=== PATIENT | male | born 1955 | race Caucasian/White ===

== ENCOUNTER 2016-11-08 10:39 | Inpatient (IN) | payer MEDICARE ==
[~2016-11-08] VITALS: Ht 180.3 cm; Wt 167.2 kg
[2016-11-08] MEDS ORDERED: SODIUM CHLORIDE FLUSH 10 ML SYR IV PRN (11:20)
[2016-11-08] MEDS ORDERED: SODIUM CHLORIDE FLUSH 3 ML SYR IV PRN (11:20)
[2016-11-08 11:54] LABS: BASOPHILS % (AUTO) 0 % (0-2); EOSINOPHILS # (AUTO) 0.1 10^3uL; EOSINOPHILS % (AUTO) 2 % (0-4); LYMPHOCYTES # (AUTO) 1.2 X10^3; MEAN CORPUSCULAR HEMOGLOBIN 32.3 PG (26.0-34.0); MEAN CORPUSCULAR VOLUME 95 FL (80-100); MEAN PLATELET VOLUME 9.2 FL (6.0-9.5); MONOCYTES # (AUTO) 0.4 X10^3; MONOCYTES % (AUTO) 7 % (3-11); NEUTROPHILS # (AUTO) 4.3 X10^3; NEUTROPHILS % (AUTO) 71 % (51-67); PLATELET COUNT 236 10^3uL (150-450); WHITE BLOOD COUNT 5.98 10^3uL (4.0-11.0)
[2016-11-08 12:05] LABS: ALBUMIN 4.2 g/dL (3.4-5.0); ALKALINE PHOSPHATASE 76 U/L (38-126); ANION GAP 17.5 MEQ/L (3-15); BUN/CREATININE RATIO 40 (10-20); CALCULATED IONIZED CALCIUM 4.1 mg/dL (3.8-4.6); TOTAL PROTEIN 7.4 g/dL (6.4-8.5)
[2016-11-08] MEDS ORDERED: METOCLOPRAMIDE 10 MG/2 ML (REGLAN) VIAL IV ONE (12:20)
[2016-11-08] MEDS ORDERED: meTOprolol 5 MG/5 ML (LOPRESSOR) VIAL IV ONE (12:20)
[2016-11-08 12:54] LABS: AMPHETAMINE SCREEN, URINE Negative (Negative); CANNABINOID SCREEN, URINE Negative (Negative); METHAMPHETAMINE SCREEN URINE S NEGATIVE (NEGATIVE); OPIATE SCREEN URINE Negative (Negative); PROPOXYPHENE STAT NEGATIVE (NEGATIVE)
[2016-11-08] MEDS ORDERED: oxycODONE/ACETAMINOPHEN 10MG-325 MG (PERCOCET-10) TABLET PO ONE (13:50)
[2016-11-08] MEDS ORDERED: oxyCODONE/ACETAMINOPHEN 5MG-325 MG (PERCOCET) TABLET PO ONE (14:15)
[2016-11-08] MEDS ORDERED: GLUCAGON EMERGENCY 1 MG/KIT IM PRN (17:15)
[2016-11-08] MEDS ORDERED: DEXTROSE 50% 25 GM/50 ML SYRINGE IV PRN (17:15)
[2016-11-08] MEDS ORDERED: ONDANSETRON 2 MG/ML (Z0FRAN) 2 ML VIAL IV PRN (17:15)
[2016-11-08] MEDS ORDERED: DEXTROSE ORAL GEL (GLUTOSE 40%) 15 GM TUBE PO PRN (17:15)
[2016-11-08] MEDS: INSULIN LISPRO 1 UNIT/0.01 ML (HUMALOG) DOSE SC SCH ×2 (17:30→22:10)
[2016-11-08 17:31] VITALS: BP 124/85
[2016-11-08 18:00] VITALS: BP 124/85
[2016-11-08] MEDS: NICOTINE 21 MG (NICODERM) PATCH TD SCH (18:38)
[2016-11-08] MEDS: oxycODONE/ACETAMINOPHEN 10MG-325 MG (PERCOCET-10) TABLET PO SCH (18:42)
[2016-11-08] MEDS ORDERED: CYCLOBENZAPRINE 10 MG (FLEXERIL) TAB ONE (20:07)
[2016-11-08] MEDS: lisINopril 40 MG (PRINIVIL) TABLET PO SCH (20:24)
[2016-11-08] MEDS ORDERED: GLIMEPIRIDE 4 MG (AMARYL) TAB PO SCH ×2 (21:00)
[2016-11-08] MEDS ORDERED: metFORMIN 1000 MG (GLUCOPHAGE) TABLET PO SCH ×2 (21:00)
[2016-11-08] MEDS ORDERED: IBUPROFEN 800 MG (MOTRIN) TAB PO PRN (21:00)
[2016-11-08] MEDS ORDERED: ACETAMINOPHEN 500 MG TAB (TYLENOL) PO SCH (21:00)
[2016-11-08] MEDS ORDERED: NON-FORMULARY MEDICATION 1 EA EA (Cyclobenzaprine HCl 5 MG) PO SCH (21:00)
[2016-11-08] MEDS ORDERED: CYCLOBENZAPRINE 10 MG (FLEXERIL) TAB PO SCH (21:01)
[2016-11-09 00:02] VITALS: BP 135/75
[2016-11-09] MEDS: oxycODONE/ACETAMINOPHEN 10MG-325 MG (PERCOCET-10) TABLET PO SCH ×2 (00:08→05:48)
[2016-11-09 06:10] LABS: BASOPHILS % (AUTO) 1 % (0-2); EOSINOPHILS # (AUTO) 0.1 10^3uL; EOSINOPHILS % (AUTO) 2 % (0-4); LYMPHOCYTES # (AUTO) 2.4 X10^3; MEAN CORPUSCULAR HGB CONC 33.9 g/dL (31.0-37.0); MEAN CORPUSCULAR VOLUME 94 FL (80-100); MEAN PLATELET VOLUME 9.3 FL (6.0-9.5); MONOCYTES # (AUTO) 0.6 X10^3; MONOCYTES % (AUTO) 9 % (3-11); NEUTROPHILS # (AUTO) 3.4 X10^3; NEUTROPHILS % (AUTO) 52 % (51-67); PLATELET COUNT 243 10^3uL (150-450)
[2016-11-09 06:26] LABS: ALBUMIN 3.8 g/dL (3.4-5.0); ANION GAP 15.2 MEQ/L (3-15); MAGNESIUM* 2.2 mg/dL (1.6-2.3); TOTAL PROTEIN 6.9 g/dL (6.4-8.5)
[2016-11-09] MEDS: INSULIN LISPRO 1 UNIT/0.01 ML (HUMALOG) DOSE SC SCH ×2 (07:30→11:30)
[2016-11-09 08:00] VITALS: BP 133/79
[2016-11-09] MEDS ORDERED: INSULIN NPH SC SCH ×2 (08:00→09:00)
[2016-11-09] MEDS ORDERED: TAMSULOSIN 0.4 MG (FLOMAX) CAP PO SCH (09:00)
[2016-11-09] MEDS ORDERED: FLUoxetine 20 MG (PROzac) CAPSULE PO SCH (09:00)
[2016-11-09] MEDS: lisINopril 40 MG (PRINIVIL) TABLET PO SCH (09:38)
[2016-11-09] MEDS: NICOTINE 21 MG (NICODERM) PATCH TD SCH (09:39)
[2016-11-09] MEDS ORDERED: ACETAMINOPHEN 500 MG TAB (TYLENOL) PO PRN (09:40)
[2016-11-09] MEDS: INSULIN NPH SC SCH ×2 (09:45→12:32)
[2016-11-09] MEDS ORDERED: oxycODONE/ACETAMINOPHEN 10MG-325 MG (PERCOCET-10) TABLET PO SCH (12:00)
== END 2016-11-09 15:35 | disposition home health service (06) | DRG 918 ==
LOC: ED 10:41 → OBSVTOIN 16:11 → UNDOADMOB 16:11 → MED/SURG 16:11
PROVIDERS: ADMIT Family Medicine; ATTEND Family Medicine
DX: T40.691A Poisoning by other narcotics, accidental (unintentional), initial encounter (principal); Z68.43 Body mass index [BMI] 50.0-59.9, adult; R41.82 Altered mental status, unspecified; Z66 Do not resuscitate; E86.0 Dehydration; D64.9 Anemia, unspecified; E11.9 Type 2 diabetes mellitus without complications; G89.29 Other chronic pain; I10 Essential (primary) hypertension; E66.01 Morbid (severe) obesity due to excess calories; Z79.4 Long term (current) use of insulin; Z79.84 Long term (current) use of oral hypoglycemic drugs
CPT/HCPCS: 36415; 70450; 73502; 73562; 80053; 80307; 80320; 80329; 83036; 83735; 84443; 84484; 85025; 93005; 96360; 99284; 99285